=== PATIENT | female | born 1985 | race Caucasian/White ===

== ENCOUNTER 2020-07-28 15:13 | Emergency (ER) | payer OTHER ==
[~2020-07-28 15:13] MED LIST: MEDROL 4MG DOSEP4 MG PO; NORCO 7.5-3251 EACH PO; SKELAXIN800 MG PO
== END 2020-07-28 16:33 | disposition home or self-care (01) ==
LOC: FER 15:13
DX: L01.00 Impetigo, unspecified (principal)
CPT/HCPCS: 87070; 87205; 99283

== ENCOUNTER 2021-07-30 16:16 | Emergency (ER) | payer OTHER ==
[2021-07-30 17:07] LABS: BASOPHIL 0.6 % (0-2); EOSINOPHIL 2.1 % (0-5); HCT 44.4 % (37.0-47.0); HGB 14.1 g/dl (12.5-16.0); LYMPHOCYTE 22.9 % (15-48); MCH 28.5 pg (25.0-31.0); MCHC 31.8 g/dL (32.0-36.0); MCV 89.9 fL (78.0-100.0); MONOCYTE 6.1 % (0-12); MPV 8.9 fL (6.0-9.5); NEUTROPHIL 67.9 % (41-80); NRBC 0; PLT 336 K/uL (150-400); RBC 4.94 M/uL (4.20-5.40); RDW 13.1 % (11.5-14.0); WBC 9.5 K/uL (4.0-10.5)
[2021-07-30 17:30] LABS: ALBUMIN 3.5 g/dL (3.4-5.0); BILIRUBIN - TOTAL 0.2 mg/dL (0.2-1.0); BUN/CREAT RATIO (CALC) 14.3 RATIO; CREATININE 0.91 mg/dL (0.51-0.95); GLOBULIN (CALCULATION) 4.2 g/dL; TOTAL PROTEIN 7.7 g/dL (6.4-8.2)
[2021-07-30 17:42] LABS: INR 0.97 (0.9-1.2); PROTHROMBIN TIME 12.3 SECONDS (11.8-13.4)
== END 2021-07-30 18:27 | disposition home or self-care (01) ==
LOC: FER 16:16
PROVIDERS: Physician Assistant
DX: R60.0 Localized edema (principal); I10 Essential (primary) hypertension; F17.210 Nicotine dependence, cigarettes, uncomplicated; Z28.310 Unvaccinated for COVID-19
CPT/HCPCS: 36415; 80053; 85025; 85610; 93971